=== PATIENT | male | born 1960 | race Caucasian/White ===

== ENCOUNTER 2018-02-03 08:15 | Emergency (ER) | END 2018-02-03 10:55 | disposition home or self-care (01) ==

== ENCOUNTER 2018-06-24 16:25 | Emergency (ER) | END 2018-06-24 18:37 | disposition home or self-care (01) ==

== ENCOUNTER 2019-07-13 00:54 | Emergency (ER) | payer OTHER ==
[~2019-07-13] VITALS: Ht 170.2 cm; Wt 101.0 kg
[~2019-07-13 00:54] MED LIST: ACET500C5 PO; ATOR20TA38 PO; CHLO25CA9 PO; CYCL10TA7 PO; FAMO-96 PO; GLIM1TAB2 PO; METF100010 PO; ONDA4TAB14 PO; RANI150T35 PO; SITA50TA2 PO; SUCR1TAB56 PO
[2019-07-13 00:59] VITALS: Ht 170.2 cm; Wt 101.0 kg
[2019-07-13] MEDS ORDERED: ONDANSETRON 4 MG INJ IV STA (01:08)
[2019-07-13] MEDS ORDERED: morphine 4 MG/ML VIAL IV STA (01:08)
[2019-07-13] MEDS ORDERED: SOD CHLORIDE 0.9% 1,000 ML IV STA (01:08)
--- NOTE | 2019-07-13 03:29 | ERD ---
ER Documentation Chief Complaint Chief Complaint bib self, cc: abd. pain s/p drinking etoh x 4 days, HPI This is a 59-year-old male coming with epigastric abdominal pain after measuring alcohol for the past 4 days. Denies fevers chills nausea vomiting. Denies any shakiness. Denies any fevers or chills. Denies suicidal homicidal ideation. Denies auditory or visual hallucinations. ROS All systems reviewed and are negative except as per history of present illness. Medications Home Meds Active Scripts Ondansetron (Ondansetron Odt) 4 Mg Tab.rapdis, 4 MG PO Q6H PRN for NAUSEA AND/OR VOMITING, #10 TAB Prov:NORBERTO IRBY 07/13/19 Ranitidine Hcl* (Zantac*) 150 Mg Tablet, 150 MG PO BID PRN for EPIGASTRIC PAIN, #30 TAB Prov:NORBERTO IRBY 07/13/19 Chlordiazepoxide* (Chlordiazepoxide*) 25 Mg Capsule, 25 MG PO Q8 PRN for CONTROL WITHDRAWAL SYMPTOMS, #10 CAP Prov:NORBERTO IRBY 07/13/19 Famotidine* (Pepcid*) 20 Mg Tablet, 20 MG PO BID PRN for abdominal pain, #20 TAB Prov:MINOO MUSA MD 06/24/18 Acetaminophen* (Tylophen*) 500 Mg Capsule, 1 CAP PO Q6H PRN for PAIN AND OR ELEVATED TEMP, #20 CAP Prov:PASAMALIA HAN F 02/03/18 Cyclobenzaprine Hcl* (Cyclobenzaprine Hcl*) 10 Mg Tablet, 10 MG PO Q12 PRN for MUSCLE SPASMS, #20 TAB Prov:PASILAAMALIA JOHNSON F 02/03/18 Sucralfate* (Carafate*) 1 Gm Tab, 1 GM PO Q6, #30 TAB Prov:NORBERTO IRBY 07/03/15 Ranitidine Hcl* (Zantac*) 150 Mg Tablet, 150 MG PO BID PRN for gi, #30 TAB Prov:NORBERTO IRBY 07/03/15 Reported Medications Atorvastatin Calcium* (Atorvastatin Calcium*) 20 Mg Tablet, 20 MG PO HS, TAB 02/08/15 Sitagliptin* (Januvia*) 50 Mg Tablet, 50 MG PO DAILY, TAB 02/08/15 Glimepiride* (Glimepiride*) 1 Mg Tablet, 1 MG PO BID, TAB 02/08/15 Metformin Hcl* (Metformin Hcl*) 1,000 Mg Tablet, 1000 MG PO BID, TAB 02/08/15 Allergies Allergies: Coded Allergies: No Known Allergy (Unverified , 02/08/15) PMhx/Soc History of Surgery: No Anesthesia Reaction: No Hx Neurological Disorder: No Hx Respiratory Disorders: No Hx Cardiac Disorders: No Hx Psychiatric Problems: No Hx Miscellaneous Medical Probl: Yes (DM) Hx Alcohol Use: Yes (DAILY) Hx Substance Use: No Hx Tobacco Use: No Smoking Status: Never smoker Physical Exam Vitals Vital Signs Date Temp Pulse Resp B/P (MAP) Pulse Ox O2 O2 Flow FiO2 Time Delivery Rate 07/13/19 65 18 133/86 97 Room Air 03:02 (102) 07/13/19 97.6 68 19 157/95 98 00:59 (115) Physical Exam Const: No acute distress Head: Atraumatic Eyes: Normal Conjunctiva ENT: Normal External Ears, Nose and Mouth. Neck: Full range of motion. No meningismus. Resp: Clear to auscultation bilaterally Cardio: Regular rate and rhythm, no murmurs Abd: Soft, non tender, non distended. Normal bowel sounds Skin: No petechiae or rashes Back: No midline or flank tenderness Ext: No cyanosis, or edema Neur: Awake and alert Psych: Normal Mood and Affect Result Diagram: 07/13/19 0125 07/13/19 0125 Results 24 hrs Laboratory Tests Test 07/13/19 01:20 07/13/19 01:25 Urine Color COLORLESS Urine Clarity CLEAR Urine pH 8.0 Urine Specific [place] 1.002 Urine Ketones NEGATIVE mg/dL Urine Nitrite NEGATIVE mg/dL Urine Bilirubin NEGATIVE mg/dL Urine Urobilinogen NEGATIVE mg/dL Urine Leukocyte Esterase NEGATIVE Aquiles/ul Urine Microscopic RBC 0 /HPF Urine Microscopic WBC 0 /HPF Urine Hemoglobin 2+ mg/dL Urine Glucose NEGATIVE mg/dL Urine Total Protein NEGATIVE mg/dl White Blood Count 6.2 10^3/ul Red Blood Count 4.51 10^6/ul Hemoglobin 14.1 g/dl Hematocrit 40.8 % Mean Corpuscular Volume 90.5 fl Mean Corpuscular Hemoglobin 31.3 pg Mean Corpuscular Hemoglobin Concent 34.6 g/dl Red Cell Distribution Width 13.0 % Platelet Count 225 10^3/UL Mean Platelet Volume 9.7 fl Immature Granulocytes % 0.300 % Neutrophils % 47.4 % Lymphocytes % 40.6 % Monocytes % 9.4 % Eosinophils % 1.8 % Basophils % 0.5 % Nucleated Red Blood Cells % 0.0 /100WBC Immature Granulocytes # 0.020 10^3/ul Neutrophils # 2.9 10^3/ul Lymphocytes # 2.5 10^3/ul Monocytes # 0.6 10^3/ul Eosinophils # 0.1 10^3/ul Basophils # 0.0 10^3/ul Nucleated Red Blood Cells # 0.0 10^3/ul Sodium Level 137 mmol/L Potassium Level 4.0 mmol/L Chloride Level 102 mmol/L Carbon Dioxide Level 25 mmol/L Anion Gap 10 Blood Urea Nitrogen 10 mg/dl Creatinine 0.70 mg/dl Est Glomerular Filtrat Rate mL/min > 60 mL/min Glucose Level 212 mg/dl Calcium Level 8.8 mg/dl Total Bilirubin 0.7 mg/dl Direct Bilirubin 0.00 mg/dl Indirect Bilirubin 0.7 mg/dl Aspartate Amino Transf (AST/SGOT) 37 IU/L Alanine Aminotransferase (ALT/SGPT) 45 IU/L Alkaline Phosphatase 148 IU/L Total Protein 7.3 g/dl Albumin 4.1 g/dl Globulin 3.20 g/dl Albumin/Globulin Ratio 1.28 Lipase 94 U/L Current Medications Medications Dose Sig/Scar Start Time Status Last (Trade) Ordered Route PRN Stop Time Admin Dose Reason Admin Sodium 1,000 ml @ Q1H STAT 07/13/19 DC 07/13/19 Chloride 1,000 mls/hr IV 01:08 01:19 07/13/19 02:07 Morphine 4 mg ONCE STAT 07/13/19 DC 07/13/19 Sulfate IV 01:08 01:19 (morphine) 07/13/19 01:09 Ondansetron 4 mg ONCE STAT 07/13/19 DC 07/13/19 HCl (Zofran IV 01:08 01:19 Inj) 07/13/19 01:09 Procedures/MDM Medical decision making: This 59-year-old male epigastric abdominal pain likely alcoholic gastritis. At this point clinically stable. No evidence of arauz creatitis. Pain is resolved. Patient will be discharged home. Advised to stop drinking. Departure Diagnosis: Primary Impression: Gastritis Gastritis type: unspecified gastritis Chronicity: unspecified Gastritis bleeding: without bleeding Qualified Codes: K29.70 - Gastritis, unspecified, without bleeding Additional Impression: ETOH abuse Condition: Stable Patient Instructions: Epigastric Pain (Uncertain Cause), Alcohol Abuse NORBERTO IRBY Jul 13, 2019 03:29
[2019-07-13 03:33] VITALS: BP 142/70; PULSE 98; RESP 18
== END 2019-07-13 03:34 | disposition home or self-care (01) ==
LOC: E/R 00:54
DX: K29.70 Gastritis, unspecified, without bleeding (principal); F10.10 Alcohol abuse, uncomplicated; E11.9 Type 2 diabetes mellitus without complications; Z79.84 Long term (current) use of oral hypoglycemic drugs
CPT/HCPCS: 36415; 80053; 81001; 83690; 85025; 96361; 96374; 96375; 99284; J2270; J2405; J7030